=== PATIENT | female | born 1990 | race Caucasian/White ===

== ENCOUNTER → 2024-10-20 07:50 | Outpatient (REF) | payer BC, SELFPAY | LOC: PNTC 07:50 | PROVIDERS: ATTENDING PHYSICIAN Obstetrics & Gynecology | DX: Z36.0 Encounter for antenatal screening for chromosomal anomalies (principal); Z36.82 Encounter for antenatal screening for nuchal translucency | CPT/HCPCS: 76801; 76813 ==